=== PATIENT | male | born 1970 | race Caucasian/White ===

== ENCOUNTER 2018-07-26 16:12 | Emergency (ER) | payer OTHER ==
[~2018-07-26] VITALS: Ht 180.3 cm; Wt 90.7 kg
[2018-07-26 17:54] VITALS: BP 128/79
[2018-07-26] MEDS ORDERED: NORCO 5-325 TA1 EACH PO (17:54)
[2018-07-26] MEDS ORDERED: KEFLEX500 M1 PO (17:54)
== END 2018-07-26 18:24 | disposition home or self-care (01) ==
LOC: ER 16:12
DX: S62.633B Displaced fracture of distal phalanx of left middle finger, initial encounter for open fracture (principal); W23.0XXA Caught, crushed, jammed, or pinched between moving objects, initial encounter; Y93.89 Activity, other specified; Y92.89 Other specified places as the place of occurrence of the external cause; Y99.8 Other external cause status